=== PATIENT | female | born 1965 | race Caucasian/White ===

== ENCOUNTER 2020-08-30 18:36 | Emergency (ER) | payer OTHER ==
[~2020-08-30] VITALS: Ht 154.9 cm; Wt 49.9 kg
[2020-08-30 18:42] VITALS: BP 139/58
== END 2020-08-30 20:42 | disposition left against medical advice (07) ==
LOC: ER 18:42
DX: M54.2 Cervicalgia (principal); Z53.21 Procedure and treatment not carried out due to patient leaving prior to being seen by health care provider
CPT/HCPCS: 70450; 72070